=== PATIENT | female | born 1940 | race American Indian/Alaskan Native ===

== ENCOUNTER 2016-06-09 23:23 | Inpatient (IN) | payer MEDICARE ==
--- NOTE | 2016-06-10 00:09 | Emergency Department Report ---
ED General Adult HPI - General Chief complaint: Chest Pain Stated complaint: CHEST PAIN Time Seen by Provider: 06/09/16 23:48 Source: EMS Mode of arrival: Stretcher Limitations: Physical Limitation - History of Present Illness Initial comments: This is a 75-year-old female who gives me a myriad of complaints. Her chief complaint is chest pain that she feels on the right side radiating to the right aspect of her neck. She describes some mild dyspnea associated with this as well she also reports feeling nauseated with this. She complains of pain 8 out of 10. She denies any trauma today she denies any prior significant cardiac history. Onset/Timin -: Sudden, hour(s) Location: chest Radiation: neck Severity scale (0 -10): 9 Quality: aching Consistency: constant Improves with: none Worsens with: none Associated Symptoms: nausea/vomiting - Related Data Home Medications Medication Instructions Recorded Confirmed Last Taken Carvedilol [Coreg] 6.25 mg PO DAILY 10/14/13 06/10/16 09/30/15 Ibuprofen [Motrin] 600 mg PO Q8H PRN 06/03/15 06/10/16 Unknown Simvastatin [Zocor TAB] 10 mg PO QHS 06/03/15 06/10/16 06/02/15 Losartan/Hydrochlorothiazide 1 tab PO QDAY 06/04/15 06/10/16 09/30/15 [Hyzaar 100-25 TAB] ALPRAZolam [Xanax TAB] 1 mg PO QHS PRN 06/10/16 06/10/16 Unknown Pen Needle, Diabetic [Bd 1 each MC BID 06/10/16 06/10/16 Unknown Ultra-Fine Pen Needle] Previous Rx's Medication Instructions Recorded Last Taken Type Gabapentin [Neurontin] 300 mg PO QPM capsule 06/14/15 09/29/15 Rx Insulin Lispro Prot/Lispro 20 units SUB-Q BIDDIAB units 06/14/15 09/30/15 Rx [HumaLOG Mix 75/25 Vial] Allergies Allergy/AdvReac Type Severity Reaction Status Date / Time metronidazole [From Flagyl] Allergy Hives Verified 04/07/15 05:25 silver Allergy Hives Verified 04/07/15 05:25 ED Review of Systems ROS: Stated complaint: CHEST PAIN Other details as noted in HPI Constitutional: denies: chills, fever Eyes: denies: eye pain, eye discharge, vision change ENT: denies: ear pain, throat pain Respiratory: denies: cough, shortness of breath, wheezing Cardiovascular: chest pain. denies: palpitations Endocrine: no symptoms reported Gastrointestinal: nausea. denies: abdominal pain, diarrhea Genitourinary: denies: urgency, dysuria, discharge Musculoskeletal: denies: back pain, joint swelling, arthralgia Skin: denies: rash, lesions Neurological: denies: headache, weakness, paresthesias Psychiatric: denies: anxiety, depression Hematological/Lymphatic: denies: easy bleeding, easy bruising ED Past Medical Hx - Past Medical History Hx Hypertension: Yes Hx CVA: Yes Hx Heart Attack/AMI: No Hx Congestive Heart Failure: No Hx Diabetes: Yes Hx Deep Vein Thrombosis: No Hx Pulmonary Embolism: No Hx GERD: No Hx Liver Disease: No Hx Renal Disease: No Hx Sickle Cell Disease: No Hx Arthritis: No Hx Headaches / Migraines: No Hx Seizures: No Hx Kidney Stones: No Hx Psychiatric Treatment: No Hx Asthma: No Hx COPD: No Hx Tuberculosis: No Hx Dementia: No Hx HIV: No Additional medical history: diabetic retinopathy. diabetic neuropathy - Surgical History Hx Coronary Stent: No Hx Open Heart Surgery: No Hx Pacemaker: No Hx Internal Defibrillator: No Hx Cholecystectomy: No Hx Appendectomy: No Hx Breast Surgery: No Additional Surgical History: hysterectomy. Spinal fusion. esophageal tear., Knee surgery, eye surgery - Social History Smoking Status: Never Smoker Substance Use Type: None - Medications Home Medications: Home Medications Medication Instructions Recorded Confirmed Last Taken Type Carvedilol [Coreg] 6.25 mg PO DAILY 10/14/13 06/10/16 09/30/15 History Ibuprofen [Motrin] 600 mg PO Q8H PRN 06/03/15 06/10/16 Unknown History Simvastatin [Zocor TAB] 10 mg PO QHS 06/03/15 06/10/16 06/02/15 History Losartan/Hydrochlorothiazide 1 tab PO QDAY 06/04/15 06/10/16 09/30/15 History [Hyzaar 100-25 TAB] Gabapentin [Neurontin] 300 mg PO QPM capsule 06/14/15 06/10/16 09/29/15 Rx Insulin Lispro Prot/Lispro 20 units SUB-Q BIDDIAB units 06/14/15 06/10/1609/29 /16 Rx [HumaLOG Mix 75/25 Vial] ALPRAZolam [Xanax TAB] 1 mg PO QHS PRN 06/10/16 06/10/16 Unknown History Pen Needle, Diabetic [Bd 1 each MC BID 06/10/16 06/10/16 Unknown History Ultra-Fine Pen Needle] ED Physical Exam - General Limitations: Physical Limitation General appearance: alert, in no apparent distress - Head Head exam: Present: atraumatic, normocephalic - Eye Eye exam: Present: normal appearance - ENT ENT exam: Present: normal exam, mucous membranes moist - Neck Neck exam: Present: normal inspection, full ROM. Absent: tenderness, lymphadenopathy - Respiratory Respiratory exam: Present: normal lung sounds bilaterally. Absent: respiratory distress, rhonchi - Cardiovascular Cardiovascular Exam: Present: regular rate, normal rhythm. Absent: systolic murmur, diastolic murmur, rubs, gallop - GI/Abdominal GI/Abdominal exam: Present: soft, normal bowel sounds - Extremities Exam Extremities exam: Present: normal inspection - Back Exam Back exam: Present: normal inspection - Neurological Exam Neurological exam: Present: alert, oriented X3 - Psychiatric Psychiatric exam: Present: normal affect, normal mood - Skin Skin exam: Present: warm, dry, intact, normal color. Absent: rash ED Course Vital Signs 06/09/16 06/09/16 06/09/16 23:25 23:33 23:41 Temperature 98.6 F Pulse Rate 68 70 Respiratory 13 15 Rate Blood Pressure 192/102 192/102 Blood Pressure 192/102 [Right] O2 Sat by Pulse 99 99 99 Oximetry 06/09/16 06/09/16 06/10/16 23:51 23:59 00:00 Temperature Pulse Rate 70 70 68 Respiratory 15 15 13 Rate Blood Pressure 201/108 201/108 203/108 Blood Pressure [Right] O2 Sat by Pulse 99 100 100 Oximetry 06/10/16 06/10/16 06/10/16 00:10 00:21 00:22 Temperature Pulse Rate 71 69 Respiratory 9 L 13 16 Rate Blood Pressure 203/108 203/108 Blood Pressure [Right] O2 Sat by Pulse 96 99 100 Oximetry 06/10/16 06/10/16 06/10/16 00:30 00:41 00:42 Temperature Pulse Rate 66 66 70 Respiratory 12 10 L Rate Blood Pressure 193/96 193/96 201/108 Blood Pressure [Right] O2 Sat by Pulse 99 98 Oximetry 06/10/16 06/10/16 06/10/16 00:51 01:00 01:11 Temperature Pulse Rate 64 71 69 Respiratory 12 14 13 Rate Blood Pressure 192/92 172/96 172/96 Blood Pressure [Right] O2 Sat by Pulse 100 98 99 Oximetry 06/10/16 06/10/16 06/10/16 01:21 01:30 01:41 Temperature Pulse Rate 62 67 83 Respiratory 13 13 12 Rate Blood Pressure 184/97 175/91 175/91 Blood Pressure [Right] O2 Sat by Pulse 99 100 98 Oximetry 06/10/16 06/10/16 06/10/16 01:51 02:01 02:11 Temperature Pulse Rate 70 67 71 Respiratory 13 10 L 14 Rate Blood Pressure 175/91 186/110 186/110 Blood Pressure [Right] O2 Sat by Pulse 100 100 100 Oximetry 06/10/16 06/10/16 06/10/16 02:21 02:31 02:41 Temperature Pulse Rate 65 68 70 Respiratory 14 11 L 9 L Rate Blood Pressure 186/110 186/110 186/110 Blood Pressure [Right] O2 Sat by Pulse 100 98 98 Oximetry 06/10/16 06/10/16 06/10/16 02:51 03:01 03:11 Temperature Pulse Rate 65 65 59 L Respiratory 10 L 10 L 8 L Rate Blood Pressure 186/110 142/89 142/89 Blood Pressure [Right] O2 Sat by Pulse 96 98 97 Oximetry 06/10/16 06/10/16 06/10/16 03:21 03:30 03:41 Temperature Pulse Rate 62 62 62 Respiratory 10 L 9 L 9 L Rate Blood Pressure 142/89 127/80 127/80 Blood Pressure [Right] O2 Sat by Pulse 97 96 96 Oximetry 06/10/16 06/10/16 06/10/16 03:53 04:00 04:11 Temperature Pulse Rate 61 60 60 Respiratory 9 L 11 L 10 L Rate Blood Pressure 127/80 135/82 135/82 Blood Pressure [Right] O2 Sat by Pulse 95 98 99 Oximetry 06/10/16 06/10/16 06/10/16 04:21 04:30 04:41 Temperature Pulse Rate 59 L 63 62 Respiratory 11 L 10 L 9 L Rate Blood Pressure 135/82 142/76 142/76 Blood Pressure [Right] O2 Sat by Pulse 99 100 98 Oximetry 06/10/16 06/10/16 04:51 05:00 Temperature Pulse Rate 60 62 Respiratory 8 L 13 Rate Blood Pressure 142/76 136/66 Blood Pressure [Right] O2 Sat by Pulse 97 97 Oximetry - Reevaluation(s) Reevaluation #1: 06/10/16 05:29 Patient appears very calm and comfortable lying in the bed she will she response my questions with these. I ask her how significant her pain is and she describes it being a 10 out of 10. Her examination was unremarkable. Her pain description is not consistent with her presentation. ECG is not consistent with anything that appears like a STEMI. Labs as well demonstrate a normal troponin. Chest x-ray was essentially unremarkable as well. I did add LFTs due to the right shoulder/right arm pains. These were noted to be normal as well. On her abdominal examination is unremarkable. I do feel there is a psychiatric component to this evaluation. Unfortunately I do need to error on the side of caution given her symptomatology and will admit her for further chest pain rule out and observation. Her vital signs remained stable here. Did become quite comfortable initially with a little morphine. She slept for a couple of hours. Then when awaking she stated her pain came back just as suddenly and this is sharp. There is no change on the monitor with the morphology of her QRS complexes are ST-T waves her condition is stable at this time. ED Medical Decision Making - Lab Data Result diagrams: 06/10/16 00:18 06/10/16 00:18 - EKG Data -: EKG Interpreted by Me (nonspecific ST-T wave abnormalities including T-wave inversion inferiorly) EKG shows normal: sinus rhythm Rate: normal - Radiology Data Radiology results: image reviewed interpreted by me: No acute process without infiltrate normal cardiac silhouette no signs of widening of the mediastinum. Critical care attestation.: If time is entered above; I have spent that time in minutes in the direct care of this critically ill patient, excluding procedure time. ED Disposition Clinical Impression: Chest pain Disposition: OP ADMITTED IP TO THIS HOSP Is pt being admited?: Yes Does the pt Need Aspirin: No Condition: Stable Time of Disposition: 03:34
[2016-06-10] MEDS ORDERED: ASPIRIN PO ONE (00:31)
[2016-06-10] MEDS ORDERED: NITRO-BID 2% TP ONE (00:31)
[2016-06-10 00:44] LABS: Eosinophils % (Auto) 2.1 % (0.0-4.3)
[2016-06-10 00:57] LABS: BUN/Creatinine Ratio 18.18; Blood Urea Nitrogen 20 mg/dL (7-17); Calcium 10.4 mg/dL (8.4-10.2); Carbon Dioxide 26 mmol/L (22-30); Chloride 96.6 mmol/L (98-107); Glucose 169 mg/dL (65-100); Potassium 3.7 mmol/L (3.6-5.0); Sodium 136 mmol/L (137-145)
[2016-06-10 01:07] LABS: Anion Gap 17 mmol/L
[2016-06-10 01:39] LABS: Red Cell Distribution Width 13.5 % (13.2-15.2)
[2016-06-10 02:02] LABS: Basophils % (Auto) 1.7 % (0.0-1.8); Hematocrit 36.7 % (30.3-42.9); Hemoglobin 11.8 gm/dl (10.1-14.3); Mean Corpuscular HGB Conc 32 % (30-34); Mean Corpuscular Volume 80 fl (79-97); Platelet Count 124 K/mm3 (140-440); Red Blood Count 4.59 M/mm3 (3.65-5.03); White Blood Count 4.8 K/mm3 (4.5-11.0)
[2016-06-10] MEDS ORDERED: ZOFRAN IV ONE (02:13)
[2016-06-10] MEDS ORDERED: MORPHINE IV ONE (02:13)
[2016-06-10 03:15] LABS: Mean Corpuscular Hemoglobin 26 pg (28-32)
[2016-06-10 03:17] LABS: Diff Status Complete
[2016-06-10 04:34] LABS: Alanine Aminotransferase 44 units/L (7-56); Albumin 3.7 g/dL (3.9-5); Alkaline Phosphatase 73 units/L (35-129); Bilirubin,Total 0.4 mg/dL (0.1-1.2); Lipase 86 units/L (13-60); Total Protein 7.4 g/dL (6.3-8.2)
[2016-06-10 04:52] LABS: Bilirubin,Direct < 0.2 mg/dL (0-0.2); Bilirubin,Indirect 0.2 mg/dL
[2016-06-10] MEDS ORDERED: SODIUM CHLORIDE FLUSH SYRINGE 10 ML IV PRN (06:53)
--- NOTE | 2016-06-10 07:01 | History and Physical Report ---
History of Present Illness Date of examination: 06/10/16 Date of admission: 06/10/16 03:35 Chief complaint: Chest pain 1 day Non specific complaints -many History of present illness: This is a 75-year-old female who has many of complaints. Her chief complaint is chest pain that she feels on the right side radiating to the right aspect of her neck. She describes some mild dyspnea associated with this as well she also reports feeling nauseated with this. She complains of pain 8 out of 10. She denies any trauma today she denies any prior significant cardiac history. Past History Past Medical History: diabetes, hypertension, hyperlipidemia, other (PN Dementia psychosis) Past Surgical History: No surgical history Social history: lives with family Family history: hypertension Medications and Allergies Allergies Allergy/AdvReac Type Severity Reaction Status Date / Time metronidazole [From Flagyl] Allergy Hives Verified 04/07/15 05:25 silver Allergy Hives Verified 04/07/15 05:25 Home Medications Medication Instructions Recorded Confirmed Last Taken Type Carvedilol [Coreg] 6.25 mg PO DAILY 10/14/13 06/10/16 09/30/15 History Ibuprofen [Motrin] 600 mg PO Q8H PRN 06/03/15 06/10/16 Unknown History Simvastatin [Zocor TAB] 10 mg PO QHS 06/03/15 06/10/16 06/02/15 History Losartan/Hydrochlorothiazide 1 tab PO QDAY 06/04/15 06/10/16 09/30/15 History [Hyzaar 100-25 TAB] Gabapentin [Neurontin] 300 mg PO QPM capsule 06/14/15 06/10/16 09/29/15 Rx Insulin Lispro Prot/Lispro 20 units SUB-Q BIDDIAB units 06/14/15 06/10/1609/29 Rx [HumaLOG Mix 75/25 Vial] ALPRAZolam [Xanax TAB] 1 mg PO QHS PRN 06/10/16 06/10/16 Unknown History Pen Needle, Diabetic [Bd 1 each MC BID 06/10/16 06/10/16 Unknown History Ultra-Fine Pen Needle] Active Meds: Active Medications Alprazolam (Xanax) 1 mg PO QHS PRN PRN Reason: Anxiety Carvedilol (Coreg) 6.25 mg PO DAILY ROSEANN Gabapentin (Neurontin) 300 mg PO QPM ROSEANN Influenza Virus Vaccine Quadrival (Fluarix Quad [id number](36 Mos+)) 60 mcg IM .ONCE ONE Stop: 06/10/16 12:01 Insulin Aspart (Novolog) 0 units SUB-Q ACHS ROSEANN PRN Reason: Protocol Insulin Human Isoph/Insulin Regular (Novolin 70/30) 20 unit SUB-Q BIDDIAB ROSEANN Miscellaneous Medication (Losartan/Hydrochlorothiazide [Hyzaar 100-25 Tab]) 1 tab PO QDAY ROSEANN Simvastatin (Zocor) 10 mg PO QHS REPLACED BY [facility] Sodium Chloride (Sodium Chloride Flush Syringe 10 Ml) 10 ml IV PRN PRN PRN Reason: LINE FLUSH Review of Systems All systems: negative Cardiovascular: chest pain Respiratory: shortness of breath Exam - Constitutional Vitals: Temp Pulse Resp BP Pulse Ox 98.6 F 62 13 136/66 97 06/09/16 23:25 06/10/16 05:00 06/10/16 05:00 06/10/16 05:00 06/10/16 05:00 General appearance: Present: no acute distress, well-nourished - EENT Eyes: Present: PERRL ENT: hearing intact, clear oral mucosa - Neck Neck: Present: supple, normal ROM - Respiratory Respiratory effort: normal Respiratory: bilateral: CTA - Cardiovascular Heart Sounds: Present: S1 & S2. Absent: rub, click - Extremities Extremities: pulses symmetrical, No edema Peripheral Pulses: within normal limits - Abdominal General gastrointestinal: Present: soft, non-tender, non-distended, normal bowel sounds Female genitourinary: Present: normal - Integumentary Integumentary: Present: clear, warm, dry - Musculoskeletal Musculoskeletal: gait normal, strength equal bilaterally - Psychiatric Psychiatric: appropriate mood/affect, intact judgment & insight - Neurologic Neurologic: CNII-XII intact, moves all extremities Results - Labs CBC & Chem 7: 06/10/16 00:18 06/10/16 00:18 Labs: Short CBC 06/10/16 Range/Units 00:18 WBC 4.8 (4.5-11.0) K/mm3 Hgb 11.8 (10.1-14.3) gm/dl Hct 36.7 (30.3-42.9) % Plt Count 124 L (140-440) K/mm3 BMP 06/10/16 00:18 Sodium 136 L Potassium 3.7 Chloride 96.6 L Carbon Dioxide 26 BUN 20 H Creatinine 1.1 Glucose 169 H Calcium 10.4 H Cardiac Enzymes 06/10/16 06/10/16 Range/Units 00:18 03:11 Troponin T < 0.010 < 0.010 (0.00-0.029) ng/mL Liver Function 06/10/16 Range/Units 00:18 Total Bilirubin 0.4 (0.1-1.2) mg/dL Direct Bilirubin < 0.2 (0-0.2) mg/dL AST 47 H (5-40) units/L ALT 44 (7-56) units/L Alkaline Phosphatase 73 (35-129) units/L Albumin 3.7 L (3.9-5) g/dL Cardiac Enzymes 06/10/16 Range/Units 12:04 Total Creatine Kinase 77 (30-135) units/L CK-MB (CK-2) 2.6 (0.0-4.0) ng/mL Troponin T < 0.010 (0.00-0.029) ng/mL Assessment and Plan - Patient Problems (1) Chest pain Current Visit: Yes Status: Acute Qualifiers: Chest pain type: C Plan to address problem: Chest pain r/o mi protocol (2) BRITTA (acute kidney injury) Current Visit: No Status: Acute Plan to address problem: Iv fluids (3) History of psychosis Current Visit: No Status: Acute Plan to address problem: ]Has delusions-she is my office patient and know her for 10 years (4) Acute ischemic stroke Current Visit: No Status: Resolved (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 (6) HTN (hypertension) Current Visit: No Status: Chronic Qualifiers: Hypertension type: essential hypertension Qualified Code(s): I10 - Essential (primary) hypertension (7) Hyperlipidemia Current Visit: No Status: Chronic Qualifiers: Hyperlipidemia type: mixed hyperlipidemia Qualified Code(s): E78.2 - Mixed hyperlipidemia Plan to address problem: Cont statins (8) Type 2 diabetes mellitus Current Visit: No Status: Chronic Qualifiers: Diabetes mellitus complication status: without complication Diabetes mellitus complication detail: D Diabetic retinopathy severity: D Proliferative retinopathy type: P Diabetes mellitus macular edema: D Diabetes mellitus [employer] truck [employer] insulin use: D Laterality: L Chronic kidney disease stage: C Plan to address problem: Cont Insulin and coverage
[2016-06-10] MEDS ORDERED: INSULIN LISPRO PROT SUB-Q SCH (08:00)
[2016-06-10] MEDS: NOVOLOG SUB-Q SCH ×4 (08:00→22:45)
[2016-06-10] MEDS ORDERED: LISPRO SUB-Q SCH (08:00)
[2016-06-10] MEDS ORDERED: LEXISCAN IV ONE ×2 (08:20→08:58)
--- NOTE | 2016-06-10 09:16 | XRay Report ---
Chest: Compared to 11/12/15. History: Chest pain. Findings: Cardiomegaly. Trachea is midline. No consolidation, pneumothorax or pleural effusion. Impression: No acute cardiopulmonary findings.
--- NOTE | 2016-06-10 09:39 | Event Note ---
Date: 06/10/16 Nuclear stress test completed. No complications Nuclear images show no significant areas of ischemia Risk for cardiac event with in the next year is less than 1% EF 69%
[2016-06-10] MEDS ORDERED: NON-FORMULARY (Losartan/Hydrochlorothiazide [Hyzaar 100-25 Tab] 1 TAB) PO SCH (10:00)
[2016-06-10] MEDS: COREG PO SCH (10:45)
[2016-06-10] MEDS: HCTZ PO SCH (10:45)
[2016-06-10 11:57] LABS: Creatine Kinase 76 units/L (30-135); Creatine Kinase MB 2.8 ng/mL (0.0-4.0)
[2016-06-10] MEDS ORDERED: FLUARIX QUAD 2016-2017(36 MOS+) IM ONE (12:00)
[2016-06-10 12:34] LABS: Creatine Kinase MB 2.6 ng/mL (0.0-4.0)
[2016-06-10 12:35] LABS: Creatine Kinase 77 units/L (30-135)
[2016-06-10] MEDS: COZAAR PO SCH (14:42)
[2016-06-10] MEDS: NEURONTIN PO SCH (17:17)
[2016-06-10] MEDS: ZOCOR PO SCH (22:44)
[2016-06-11] MEDS: COREG PO SCH (10:34)
[2016-06-11] MEDS: HCTZ PO SCH (10:34)
[2016-06-11] MEDS: NOVOLOG SUB-Q SCH ×4 (10:36→22:57)
--- NOTE | 2016-06-11 10:59 | Admit Criteria Form ---
Admission Criteria Documentation: CHEST PAIN Clinical Indications for Admission to Inpatient Care (Place 'X' for any and all applicable criteria): Admission is indicated for chest pain and ANY ONE of the following(1)(2)(3)(4)(5 ): [ ]I. Angina with acute coronary syndrome (Also use Myocardial Infarction or Angina guideline) [ ]II. Hemodynamic instability [X]III. Angina needing acute intervention as indicated by ALL of the following( 11)(12): [X]a) Unstable angina is present as indicated by angina that is ANY ONE of the following: [ ]i) New onset [ ]ii) Nocturnal [X]iii) Prolonged at rest [ ]iv) Progressive [X]b) Angina warrants acute intervention as indicated by ANY ONE of the following: [ ]i) Recurrent angina (e.g, not responding as previously to treatment) [X]ii) Angina at rest or with low-level activities despite initial medical therapy [ ]iii) New or presumably new ST-segment depression on ECG [ ]iv) Signs or symptoms of heart failure (eg, dyspnea, pulmonary edema) [ ]v) New or worsening mitral regurgitation [ ]vi) Hemodynamic instability [ ]vii) Dangerous arrhythmia (eg, sustained ventricular tachycardia) [ ]viii) History of percutaneous coronary intervention within 6 months [ ]ix) History of coronary artery bypass graft surgery [ ]x) WILBERT risk score of 2 or greater[A] [X]xi) History of Diabetes(14) [ ]xii) High-risk cardiac ischemia findings on noninvasive testing (e.g, echocardiogram, treadmill testing, nuclear scan) [ ]xiii) Chronic renal insufficiency (ie, estimated GFR less than 60 mL/min/1.732m) [ ]xiv) Left ventricular ejection fraction less than 40% [ ]IV. Evidence of ID (eg, cardiac biomarkers positive, ST-segment elevation on ECG) also use Myocardial Infarction Criteria Form. [ ]V. Pulmonary edema [ ]. Respiratory distress [ ]VII. Chest pain indicative of serious diagnosis other than coronary artery disease (eg, aortic dissection) [ ]VIII. Contraindications and/or Inappropriate clinical situations for Observational Care in patients with Chest Pain, when ANY ONE of the following is required: [ ]a) Patient with risk factor for pulmonary embolism, acute coronary syndrome and myocardial infarction (18) [ ]b) Patient with Pulmonary embolism require an average LOS of 4.3 days, therefore emergency department observation management is inappropriate 18,23 [ ]c) Painful condition/s in the elderly, have the highest rate of recidivism after emergency department observation management (10.8%) 20,21,22 [ ]d) Elevated cardiac biomarker requires intensive and exhaustive care (19) [ ]IX. General contraindications and/or Inappropriate clinical situations for Observational Care in patients with Chest Pain, when ANY ONE of the following is required: [ ]a) Prediction of prolongation of LOS based on ANY ONE of the following may be considered as a contraindication for observational care 2, 3, 4, 5, 6, 7, 8, 9, 10, 11 [ ]i) Age > 65 yrs. [ ]ii) Patient arriving by ambulance [ ]iii) Patient with high acuity [ ]iv) Patient requiring vital sign monitoring [ ]v) Patient on IV medication [ ]b) Systolic blood pressures 180mmHg 3,12 [ ]c) Patient with altered mental status including delirium and other alteration of consciousness, (3) [ ]d) Patient whose discharge disposition will be to a intermediate home or rehabilitation home should not be managed in Emergency Department Observation Unit. CMS rule requires 3 days hospital stay before such placement. 3,13 [ ]e) Patient with failure to thrive due to broad array of etiologies 3,16,17 [ ]f) Inability to ambulate 3,14 Extended stay beyond goal length of stay may be needed for (1)(28): [ ]a) Specific condition diagnosed after evaluation (eg, pulmonary embolism, aortic dissection) [ ]b) Unstable angina [ ]c) Continued suspicion of acute coronary syndrome with inability to complete needed cardiac evaluation (eg, patient clinically unable to undergo stress testing) [ ]d) Myocardial infarction (Contents from ANGINA and CHEST PAIN clinical indications for admission to inpatient care have been integrated in this form) The original [employer] content created by [employer] has been revised. The portions of the content which have been revised are identified through the use of italic text or in bold, and [employer] has neither reviewed nor approved the modified material. All other unmodified content is copyright [employer]. Please see references footnoted in the original [employer] edition 2016 Admission Criteria Met: Yes
--- NOTE | 2016-06-11 13:40 | Treadmill Report ---
THALLIUM STRESS TEST LEFT VENTRICLE: Left ventricular chamber size is within normal. There is a small fixed apical defect, no significant reversibility on the resting study. Gated analysis demonstrates normal left ventricular systolic function, ejection fraction 69%. CONCLUSION: Small fixed apical defect, worse on the resting images, consistent with breast attenuation artifact. No reversible ischemia is demonstrated on this study. Clinical correlation is recommended. JOB# [id number] CA/NTS
[2016-06-11] MEDS: COZAAR PO SCH (13:51)
--- NOTE | 2016-06-11 15:58 | Progress Note ---
Assessment and Plan Assessment and plan: 1. Chest pain Acute coronary syndrome was excluded based on normal cardiac enzymes, EKG with no acute ischemic changes and stress test with no reversible ischemia Lipase elevated, so most likely she has epigastric pain secondary to pancreatitis; give IV fluids, keep nothing by mouth, and recheck lipase in a.m. 2. Pancreatitis See above 3. Acute kidney injury Likely secondary to vasomotor nephropathy She is on ISABEL inhibitor and HCTZ Give IV fluids, recheck in a.m.; if renal function same or worse, will discontinue diuretic 4. Hypertension BP controlled on Coreg, losartan and HCTZ 5. Diabetes On insulin 70/30; Accu-Cheks and SSI to assess insulin requirements and make adjustments Neurontin for neuropathy 6. Old CVA On statin; add Aspirin 7. Hyperlipidemia Continue statin 8. 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 DVT prophylaxis History Interval history: doing well, pain resolved Hospitalist Physical - Constitutional Vitals: Temp Pulse Resp BP Pulse Ox 98.8 F 79 18 112/57 96 06/11/16 10:28 06/11/16 13:54 06/11/16 10:28 06/11/16 13:54 06/11/16 10:28 General appearance: Present: no acute distress, well-nourished - EENT Eyes: Present: PERRL, EOM intact - Neck Neck: Present: supple, normal ROM. Absent: masses or JVD - Respiratory Respiratory effort: normal Respiratory: bilateral: CTA, negative: rales, rhonchi, wheezing - Cardiovascular Rhythm: regular Heart Sounds: Present: S1 & S2. Absent: systolic murmur - Extremities Extremities: no ischemia - Abdominal General gastrointestinal: soft, non-tender, non-distended, normal bowel sounds - Neurologic Neurologic: CNII-XII intact, no focal deficits Results - Labs CBC & Chem 7: 06/10/16 00:18 06/10/16 00:18 Labs: Laboratory Last Values WBC 4.8 K/mm3 (4.5-11.0) 06/10/16 00:18 RBC 4.59 M/mm3 (3.65-5.03) 06/10/16 00:18 Hgb 11.8 gm/dl (10.1-14.3) 06/10/16 00:18 Hct 36.7 % (30.3-42.9) 06/10/16 00:18 MCV 80 fl (79-97) 06/10/16 00:18 MCH 26 pg (28-32) L 06/10/16 00:18 MCHC 32 % (30-34) 06/10/16 00:18 RDW 13.5 % (13.2-15.2) 06/10/16 00:18 Plt Count 124 K/mm3 (140-440) L 06/10/16 00:18 Lymph % (Auto) 46.1 % (13.4-35.0) H 06/10/16 00:18 [place] % (Auto) 11.0 % (0.0-7.3) H 06/10/16 00:18 Eos % (Auto) 2.1 % (0.0-4.3) 06/10/16 00:18 Baso % (Auto) 1.7 % (0.0-1.8) 06/10/16 00:18 Lymph # 2.2 K/mm3 (1.2-5.4) 06/10/16 00:18 [place] # 0.6 K/mm3 (0.0-0.8) 06/10/16 00:18 Eos # 0.1 K/mm3 (0.0-0.4) 06/10/16 00:18 Baso # 0.1 K/mm3 (0.0-0.1) 06/10/16 00:18 Add Manual Diff Complete 06/10/16 00:18 Seg Neutrophils % 40.9 % (40.0-70.0) 06/10/16 00:18 Seg Neutrophils # 2.1 K/mm3 (1.8-7.7) 06/10/16 00:18 Sodium 136 mmol/L (137-145) L 06/10/16 00:18 Potassium 3.7 mmol/L (3.6-5.0) 06/10/16 00:18 Chloride 96.6 mmol/L (98-107) L 06/10/16 00:18 Carbon Dioxide 26 mmol/L (22-30) 06/10/16 00:18 Anion Gap 17 mmol/L 06/10/16 00:18 BUN 20 mg/dL (7-17) H 06/10/16 00:18 Creatinine 1.1 mg/dL (0.7-1.2) 06/10/16 00:18 Estimated GFR 59 ml/min 06/10/16 00:18 BUN/Creatinine Ratio 18.18 % 06/10/16 00:18 Glucose 169 mg/dL (65-100) H 06/10/16 00:18 POC Glucose 216 (70-105) H 06/11/16 10:26 Calcium 10.4 mg/dL (8.4-10.2) H 06/10/16 00:18 Total Bilirubin 0.4 mg/dL (0.1-1.2) 06/10/16 00:18 Direct Bilirubin < 0.2 mg/dL (0-0.2) 06/10/16 00:18 Indirect Bilirubin 0.2 mg/dL 06/10/16 00:18 AST 47 units/L (5-40) H 06/10/16 00:18 ALT 44 units/L (7-56) 06/10/16 00:18 Alkaline Phosphatase 73 units/L (35-129) 06/10/16 00:18 Total Creatine Kinase 77 units/L (30-135) 06/10/16 12:04 CK-MB (CK-2) 2.6 ng/mL (0.0-4.0) 06/10/16 12:04 CK-MB (CK-2) Rel Index 3.3 (0-4) 06/10/16 12:04 Troponin T < 0.010 ng/mL (0.00-0.029) 06/10/16 12:04 Total Protein 7.4 g/dL (6.3-8.2) 06/10/16 00:18 Albumin 3.7 g/dL (3.9-5) L 06/10/16 00:18 Albumin/Globulin Ratio 1.0 % 06/10/16 00:18 Lipase 86 units/L (13-60) H 06/10/16 00:18 - Imaging and Cardiology EKG: image reviewed (no acute ischemic changes) Chest x-ray: image reviewed (normal) Imaging and Cardiology: Stress test negative for iscj=hemia
[2016-06-11] MEDS: NACL 0.9% 1000 ML 1,000 ML IV SCH (16:34)
[2016-06-11] MEDS: NEURONTIN PO SCH (22:49)
[2016-06-11] MEDS: ZOCOR PO SCH (22:49)
[2016-06-12 06:54] LABS: BUN/Creatinine Ratio 22.72; Calcium 9.6 mg/dL (8.4-10.2); Chloride 99.9 mmol/L (98-107); Potassium 3.2 mmol/L (3.6-5.0)
[2016-06-12] MEDS: NOVOLOG SUB-Q SCH ×4 (08:42→21:18)
[2016-06-12] MEDS ORDERED: K-DUR PO ONE (09:23)
[2016-06-12] MEDS: BABY ASPIRIN PO SCH (11:38)
[2016-06-12] MEDS: COZAAR PO SCH (11:38)
[2016-06-12] MEDS: COREG PO SCH (11:38)
[2016-06-12] MEDS: HCTZ PO SCH (11:39)
--- NOTE | 2016-06-12 12:34 | Progress Note ---
Assessment and Plan Assessment and plan: 1. Chest pain Acute coronary syndrome was excluded based on normal cardiac enzymes, EKG with no acute ischemic changes and stress test with no reversible ischemia Lipase elevated, so most likely she has epigastric pain secondary to pancreatitis; received IV fluids; started on diet and tolerating well; lipase trended down 2. Pancreatitis See above 3. Acute kidney injury Likely secondary to vasomotor nephropathy She is on ISABEL inhibitor and HCTZ Receiving IV fluids;if renal function will worsen, will discontinue diuretic 4. Hypertension BP controlled on Coreg, losartan and HCTZ 5. Diabetes On insulin 70/30; Accu-Cheks and SSI to assess insulin requirements and make adjustments Neurontin for neuropathy 6. Old CVA On statin; add Aspirin 7. Hyperlipidemia Continue statin 8. 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 DVT prophylaxis 10. Discharge planning income tax manager working on placement History Interval history: doing well, epigastric pain resolved; c/o back pain Hospitalist Physical - Constitutional Vitals: Temp Pulse Resp BP Pulse Ox 98.3 F 66 18 122/76 100 06/12/16 09:56 06/12/16 09:56 06/12/16 09:56 06/12/16 09:56 06/12/16 09:56 General appearance: Present: no acute distress - EENT Eyes: Present: PERRL, EOM intact - Neck Neck: Present: supple, normal ROM. Absent: masses or JVD - Respiratory Respiratory effort: normal Respiratory: bilateral: CTA, negative: rales, rhonchi, wheezing - Cardiovascular Rhythm: regular Heart Sounds: Present: S1 & S2. Absent: systolic murmur - Extremities Extremities: no ischemia - Abdominal General gastrointestinal: soft, non-tender, non-distended, normal bowel sounds - Neurologic Neurologic: moves all extremities Results - Labs CBC & Chem 7: 06/10/16 00:18 06/12/16 06:03 Labs: Laboratory Last Values WBC 4.8 K/mm3 (4.5-11.0) 06/10/16 00:18 RBC 4.59 M/mm3 (3.65-5.03) 06/10/16 00:18 Hgb 11.8 gm/dl (10.1-14.3) 06/10/16 00:18 Hct 36.7 % (30.3-42.9) 06/10/16 00:18 MCV 80 fl (79-97) 06/10/16 00:18 MCH 26 pg (28-32) L 06/10/16 00:18 MCHC 32 % (30-34) 06/10/16 00:18 RDW 13.5 % (13.2-15.2) 06/10/16 00:18 Plt Count 124 K/mm3 (140-440) L 06/10/16 00:18 Lymph % (Auto) 46.1 % (13.4-35.0) H 06/10/16 00:18 [place] % (Auto) 11.0 % (0.0-7.3) H 06/10/16 00:18 Eos % (Auto) 2.1 % (0.0-4.3) 06/10/16 00:18 Baso % (Auto) 1.7 % (0.0-1.8) 06/10/16 00:18 Lymph # 2.2 K/mm3 (1.2-5.4) 06/10/16 00:18 [place] # 0.6 K/mm3 (0.0-0.8) 06/10/16 00:18 Eos # 0.1 K/mm3 (0.0-0.4) 06/10/16 00:18 Baso # 0.1 K/mm3 (0.0-0.1) 06/10/16 00:18 Add Manual Diff Complete 06/10/16 00:18 Seg Neutrophils % 40.9 % (40.0-70.0) 06/10/16 00:18 Seg Neutrophils # 2.1 K/mm3 (1.8-7.7) 06/10/16 00:18 Sodium 138 mmol/L (137-145) 06/12/16 06:03 Potassium 3.2 mmol/L (3.6-5.0) L 06/12/16 06:03 Chloride 99.9 mmol/L (98-107) 06/12/16 06:03 Carbon Dioxide 27 mmol/L (22-30) 06/12/16 06:03 Anion Gap 14 mmol/L 06/12/16 06:03 BUN 25 mg/dL (7-17) H 06/12/16 06:03 Creatinine 1.1 mg/dL (0.7-1.2) 06/12/16 06:03 Estimated GFR 59 ml/min 06/12/16 06:03 BUN/Creatinine Ratio 22.72 % 06/12/16 06:03 Glucose 92 mg/dL (65-100) 06/12/16 06:03 POC Glucose 169 (70-105) H 06/11/16 22:08 Calcium 9.6 mg/dL (8.4-10.2) 06/12/16 06:03 Total Bilirubin 0.4 mg/dL (0.1-1.2) 06/10/16 00:18 Direct Bilirubin < 0.2 mg/dL (0-0.2) 06/10/16 00:18 Indirect Bilirubin 0.2 mg/dL 06/10/16 00:18 AST 47 units/L (5-40) H 06/10/16 00:18 ALT 44 units/L (7-56) 06/10/16 00:18 Alkaline Phosphatase 73 units/L (35-129) 06/10/16 00:18 Total Creatine Kinase 77 units/L (30-135) 06/10/16 12:04 CK-MB (CK-2) 2.6 ng/mL (0.0-4.0) 06/10/16 12:04 CK-MB (CK-2) Rel Index 3.3 (0-4) 06/10/16 12:04 Troponin T < 0.010 ng/mL (0.00-0.029) 06/10/16 12:04 Total Protein 7.4 g/dL (6.3-8.2) 06/10/16 00:18 Albumin 3.7 g/dL (3.9-5) L 06/10/16 00:18 Albumin/Globulin Ratio 1.0 % 06/10/16 00:18 Lipase 66 units/L (13-60) H 06/12/16 06:03
[2016-06-12] MEDS: NACL 0.9% 1000 ML 1,000 ML IV SCH (18:37)
[2016-06-12] MEDS: NEURONTIN PO SCH (18:38)
[2016-06-12] MEDS: ZOCOR PO SCH (21:18)
[2016-06-12] MEDS: XANAX PO PRN (21:18)
[2016-06-13] MEDS: NOVOLOG SUB-Q SCH ×4 (10:06→21:24)
[2016-06-13] MEDS: COREG PO SCH (10:33)
[2016-06-13] MEDS: BABY ASPIRIN PO SCH (10:33)
[2016-06-13] MEDS: COZAAR PO SCH (10:33)
[2016-06-13] MEDS: HCTZ PO SCH (10:33)
--- NOTE | 2016-06-13 11:27 | Progress Note ---
Assessment and Plan - Patient Problems (1) BRITTA (acute kidney injury) Current Visit: No Status: Acute Plan to address problem: IVF replacement, monitor uop q shift, (2) History of psychosis Current Visit: No Status: Acute Plan to address problem: continue supportive care, outpatient f/u (3) HTN (hypertension) Current Visit: No Status: Chronic Qualifiers: Hypertension type: essential hypertension Qualified Code(s): I10 - Essential (primary) hypertension Plan to address problem: monitor bp q shift, continue current therapy (4) Hyperlipidemia Current Visit: No Status: Chronic Qualifiers: Hyperlipidemia type: mixed hyperlipidemia Qualified Code(s): E78.2 - Mixed hyperlipidemia Plan to address problem: continue current therapy (5) Type 2 diabetes mellitus Current Visit: No Status: Chronic Qualifiers: Diabetes mellitus complication status: without complication Diabetes mellitus complication detail: D Diabetic retinopathy severity: D Proliferative retinopathy type: P Diabetes mellitus macular edema: D Diabetes mellitus termite helper insulin use: D Laterality: L Chronic kidney disease stage: C Plan to address problem: ADA diet, insulin, accu check (6) DVT prophylaxis Current Visit: Yes Status: Acute History Interval history: Pt resting in bed, No reported nursing events. Pt medically optimized. Pt discharged. Case management consulted for placement. Hospitalist Physical - Constitutional Vitals: Temp Pulse Resp BP Pulse Ox 97.8 F 54 L 18 179/93 96 06/13/16 09:17 06/13/16 09:17 06/13/16 09:17 06/13/16 09:17 06/13/16 10:41 General appearance: Present: no acute distress - EENT Eyes: Present: PERRL ENT: hearing intact - Neck Neck: Present: supple - Respiratory Respiratory: bilateral: diminished - Cardiovascular Rhythm: regular Heart Sounds: Present: S1 & S2 - Extremities Extremities: no ischemia Peripheral Pulses: within normal limits - Abdominal General gastrointestinal: soft, non-tender, non-distended - Integumentary Integumentary: Present: clear, dry Results - Labs CBC & Chem 7: 06/10/16 00:18 06/12/16 06:03 Labs: Laboratory Last Values WBC 4.8 K/mm3 (4.5-11.0) 06/10/16 00:18 RBC 4.59 M/mm3 (3.65-5.03) 06/10/16 00:18 Hgb 11.8 gm/dl (10.1-14.3) 06/10/16 00:18 Hct 36.7 % (30.3-42.9) 06/10/16 00:18 MCV 80 fl (79-97) 06/10/16 00:18 MCH 26 pg (28-32) L 06/10/16 00:18 MCHC 32 % (30-34) 06/10/16 00:18 RDW 13.5 % (13.2-15.2) 06/10/16 00:18 Plt Count 124 K/mm3 (140-440) L 06/10/16 00:18 Lymph % (Auto) 46.1 % (13.4-35.0) H 06/10/16 00:18 [place] % (Auto) 11.0 % (0.0-7.3) H 06/10/16 00:18 Eos % (Auto) 2.1 % (0.0-4.3) 06/10/16 00:18 Baso % (Auto) 1.7 % (0.0-1.8) 06/10/16 00:18 Lymph # 2.2 K/mm3 (1.2-5.4) 06/10/16 00:18 [place] # 0.6 K/mm3 (0.0-0.8) 06/10/16 00:18 Eos # 0.1 K/mm3 (0.0-0.4) 06/10/16 00:18 Baso # 0.1 K/mm3 (0.0-0.1) 06/10/16 00:18 Add Manual Diff Complete 06/10/16 00:18 Seg Neutrophils % 40.9 % (40.0-70.0) 06/10/16 00:18 Seg Neutrophils # 2.1 K/mm3 (1.8-7.7) 06/10/16 00:18 Sodium 138 mmol/L (137-145) 06/12/16 06:03 Potassium 3.2 mmol/L (3.6-5.0) L 06/12/16 06:03 Chloride 99.9 mmol/L (98-107) 06/12/16 06:03 Carbon Dioxide 27 mmol/L (22-30) 06/12/16 06:03 Anion Gap 14 mmol/L 06/12/16 06:03 BUN 25 mg/dL (7-17) H 06/12/16 06:03 Creatinine 1.1 mg/dL (0.7-1.2) 06/12/16 06:03 Estimated GFR 59 ml/min 06/12/16 06:03 BUN/Creatinine Ratio 22.72 % 06/12/16 06:03 Glucose 92 mg/dL (65-100) 06/12/16 06:03 POC Glucose 74 (70-105) 06/12/16 21:07 Calcium 9.6 mg/dL (8.4-10.2) 06/12/16 06:03 Total Bilirubin 0.4 mg/dL (0.1-1.2) 06/10/16 00:18 Direct Bilirubin < 0.2 mg/dL (0-0.2) 06/10/16 00:18 Indirect Bilirubin 0.2 mg/dL 06/10/16 00:18 AST 47 units/L (5-40) H 06/10/16 00:18 ALT 44 units/L (7-56) 06/10/16 00:18 Alkaline Phosphatase 73 units/L (35-129) 06/10/16 00:18 Total Creatine Kinase 77 units/L (30-135) 06/10/16 12:04 CK-MB (CK-2) 2.6 ng/mL (0.0-4.0) 06/10/16 12:04 CK-MB (CK-2) Rel Index 3.3 (0-4) 06/10/16 12:04 Troponin T < 0.010 ng/mL (0.00-0.029) 06/10/16 12:04 Total Protein 7.4 g/dL (6.3-8.2) 06/10/16 00:18 Albumin 3.7 g/dL (3.9-5) L 06/10/16 00:18 Albumin/Globulin Ratio 1.0 % 06/10/16 00:18 Lipase 66 units/L (13-60) H 06/12/16 06:03
--- NOTE | 2016-06-13 17:00 | Discharge Summary ---
Providers - Providers Date of Admission: 06/10/16 03:35 Attending physician: ADELE MORROW 06/10/16 Consult to Cardiac Rehabilitation [CONS] Routine Reason For Exam: Phase I 06/13/16 15:22 Physical Therapy Evaluation and Treat [CONS] Routine Comment: Reason For Exam: skill level for SNF Primary care physician: INTERCHANGE AGENT Hospitalization Condition: Stable Hospital course: 75 YO Female admitted for Atypical chest pain, Pancreatitis, Debility, HTN, and Uncontrolled Diabetes and Acute Renal Falure. Pt treated with supportive care. Pt treated IAW Chest pain protocol. Serial cardiac enzymes, EKG, and telemetry were not indicative of acute ischemia. Pt uderwent stress test which was negative for ischemia. Pt status remained stable during hospital course but patient did not improve overall. Pt found to be unable to conduct ADL's and case management consulted at admission for D/C planning and placement. Pt medically optimized. Pt evaluated prior to discharge but no significant new physical exam findings since admission. Pt discharged to SNF under care of director medical safety. 35 minutes dedicated to patient discharge. Pt medications reconciled prior to discharge. Disposition: DC/TX SNF W [facility] C[facility] - Discharge Diagnoses (1) BRITTA (acute kidney injury) Status: Acute (2) History of psychosis Status: Acute (3) HTN (hypertension) Status: Chronic Qualifiers: Hypertension type: essential hypertension Qualified Code(s): I10 - Essential (primary) hypertension (4) Hyperlipidemia Status: Chronic Qualifiers: Hyperlipidemia type: mixed hyperlipidemia Qualified Code(s): E78.2 - Mixed hyperlipidemia (5) Type 2 diabetes mellitus Status: Chronic Qualifiers: Diabetes mellitus complication status: without complication Diabetes mellitus complication detail: D Diabetic retinopathy severity: D Proliferative retinopathy type: P Diabetes mellitus macular edema: D Diabetes mellitus halfway insulin use: D Laterality: L Chronic kidney disease stage: C (6) DVT prophylaxis Status: Acute Core Measure Documentation - Palliative Care Palliative Care/ Comfort Measures: Not Applicable - Core Measures Any of the following diagnoses?: none Exam - Constitutional Vitals: Temp Pulse Resp BP Pulse Ox 97.8 F 57 L 18 179/93 96 06/13/16 09:17 06/13/16 15:34 06/13/16 09:17 06/13/16 09:17 06/13/16 10:41 General appearance: Present: no acute distress - EENT Eyes: Present: PERRL ENT: hearing intact - Neck Neck: Present: supple - Respiratory Respiratory: bilateral: diminished - Cardiovascular Rhythm: regular Heart Sounds: Present: S1 & S2 - Extremities Extremities: no ischemia Peripheral Pulses: within normal limits - Abdominal General gastrointestinal: Present: soft, non-tender, non-distended - Integumentary Integumentary: Present: clear, dry, decreased turgor - Musculoskeletal Musculoskeletal: generalized weakness - Psychiatric Psychiatric: cooperative - Neurologic Neurologic: no gait normal Plan Activity: advance as tolerated Follow up with: PRIMARY CARE, [Primary Care Provider] - 3-5 Days
--- NOTE | 2016-06-13 17:39 | Discharge Summary ---
Providers - Providers Date of Admission: 06/10/16 03:35 Attending physician: ADELE MORROW 06/10/16 Consult to Cardiac Rehabilitation [CONS] Routine Reason For Exam: Phase I 06/13/16 15:22 Physical Therapy Evaluation and Treat [CONS] Routine Comment: Reason For Exam: skill level for SNF Primary care physician: BERNICE COMER MD Hospitalization Condition: Stable Disposition: DC/TX SNF W [facility] - Discharge Diagnoses (1) BRITTA (acute kidney injury) Status: Acute (2) History of psychosis Status: Acute (3) HTN (hypertension) Status: Chronic Qualifiers: Hypertension type: essential hypertension Qualified Code(s): I10 - Essential (primary) hypertension (4) Hyperlipidemia Status: Chronic Qualifiers: Hyperlipidemia type: mixed hyperlipidemia Qualified Code(s): E78.2 - Mixed hyperlipidemia (5) Type 2 diabetes mellitus Status: Chronic Qualifiers: Diabetes mellitus complication status: without complication Diabetes mellitus complication detail: D Diabetic retinopathy severity: D Proliferative retinopathy type: P Diabetes mellitus macular edema: D Diabetes mellitus senior care insulin use: D Laterality: L Chronic kidney disease stage: C (6) DVT prophylaxis Status: Acute Core Measure Documentation - Palliative Care Palliative Care/ Comfort Measures: Not Applicable Exam - Constitutional Vitals: Temp Pulse Resp BP Pulse Ox 97.8 F 57 L 18 179/93 96 06/13/16 09:17 06/13/16 15:34 06/13/16 09:17 06/13/16 09:17 06/13/16 10:41 Plan Follow up with: BERNICE COMER MD [Primary Care Provider] - 3-5 Days
[2016-06-13] MEDS: NEURONTIN PO SCH (18:26)
[2016-06-13] MEDS: ZOCOR PO SCH (21:22)
[2016-06-13] MEDS: XANAX PO PRN (21:22)
[2016-06-14] MEDS: COREG PO SCH (09:39)
[2016-06-14] MEDS: BABY ASPIRIN PO SCH (09:39)
[2016-06-14] MEDS: COZAAR PO SCH (09:39)
[2016-06-14] MEDS: NOVOLOG SUB-Q SCH ×2 (09:40→12:46)
[2016-06-14] MEDS: HCTZ PO SCH (12:41)
[2016-06-14 13:28] VITALS: BP 125/84
== END 2016-06-14 15:00 | DRG 682 ==
LOC: ED 23:23 → 4A 06-10 03:35
PROVIDERS: ADMIT Internal Medicine; ATTEND Internal Medicine
DX: N17.9 Acute kidney failure, unspecified (principal); K85.90 Acute pancreatitis without necrosis or infection, unspecified; I10 Essential (primary) hypertension; R07.89 Other chest pain; E78.2 Mixed hyperlipidemia; F03.90 Unspecified dementia, unspecified severity, without behavioral disturbance, psychotic disturbance, mood disturbance, and anxiety; E11.319 Type 2 diabetes mellitus with unspecified diabetic retinopathy without macular edema; E11.65 Type 2 diabetes mellitus with hyperglycemia; F22 Delusional disorders; E11.40 Type 2 diabetes mellitus with diabetic neuropathy, unspecified; Z88.8 Allergy status to other drugs, medicaments and biological substances; Z79.4 Long term (current) use of insulin; Z79.899 Other long term (current) drug therapy; Z86.73 Personal history of transient ischemic attack (TIA), and cerebral infarction without residual deficits; Z90.710 Acquired absence of both cervix and uterus; Z82.49 Family history of ischemic heart disease and other diseases of the circulatory system
CPT/HCPCS: 36415; 71010; 78452; 80048; 80074; 82550; 82553; 82962; 83690; 84484; 85025; 90686; 93005; 93010; 93017; 96374; 96375; A9502; J1815; J2270; J2405; J2785; J7030

== ENCOUNTER 2016-07-18 11:53 | Emergency (ER) | payer MEDICARE ==
[2016-07-18 12:49] LABS: Basophils % (Auto) 1.2 % (0.0-1.8); Eosinophils % (Auto) 2.8 % (0.0-4.3); Hematocrit 35.7 % (30.3-42.9); Hemoglobin 11.3 gm/dl (10.1-14.3); Mean Corpuscular HGB Conc 32 % (30-34); Mean Corpuscular Hemoglobin 26 pg (28-32); Mean Corpuscular Volume 82 fl (79-97); Platelet Count 173 K/mm3 (140-440); Red Blood Count 4.34 M/mm3 (3.65-5.03); Red Cell Distribution Width 13.7 % (13.2-15.2); White Blood Count 5.4 K/mm3 (4.5-11.0)
[2016-07-18 13:16] LABS: Anion Gap 14 mmol/L; Blood Urea Nitrogen 22 mg/dL (7-17); Calcium 10.1 mg/dL (8.4-10.2); Carbon Dioxide 28 mmol/L (22-30); Glucose 147 mg/dL (65-100); Potassium 3.5 mmol/L (3.6-5.0); Sodium 141 mmol/L (137-145)
--- NOTE | 2016-07-18 14:01 | Admit Criteria Form ---
<SHERINE ABDUL - Last Filed: 07/18/16 14:01> Admission Criteria Documentation: CHEST PAIN Clinical Indications for Admission to Inpatient Care (Place 'X' for any and all applicable criteria): Admission is indicated for chest pain and ANY ONE of the following(1)(2)(3)(4)(5 ): [ ]I. Angina with acute coronary syndrome (Also use Myocardial Infarction or Angina guideline) [ ]II. Hemodynamic instability [ ]III. Angina needing acute intervention as indicated by ALL of the following( 11)(12): [ ]a) Unstable angina is present as indicated by angina that is ANY ONE of the following: [ ]i) New onset [ ]ii) Nocturnal [ ]iii) Prolonged at rest [ ]iv) Progressive [ ]b) Angina warrants acute intervention as indicated by ANY ONE of the following: [ ]i) Recurrent angina (e.g, not responding as previously to treatment) [ ]ii) Angina at rest or with low-level activities despite initial medical therapy [ ]iii) New or presumably new ST-segment depression on ECG [ ]iv) Signs or symptoms of heart failure (eg, dyspnea, pulmonary edema) [ ]v) New or worsening mitral regurgitation [ ]vi) Hemodynamic instability [ ]vii) Dangerous arrhythmia (eg, sustained ventricular tachycardia) [ ]viii) History of percutaneous coronary intervention within 6 months [ ]ix) History of coronary artery bypass graft surgery [ ]x) WILBERT risk score of 2 or greater[A] [ ]xi) History of Diabetes(14) [ ]xii) High-risk cardiac ischemia findings on noninvasive testing (e.g, echocardiogram, treadmill testing, nuclear scan) [ ]xiii) Chronic renal insufficiency (ie, estimated GFR less than 60 mL/min/1.732m) [ ]xiv) Left ventricular ejection fraction less than 40% [ ]IV. Evidence of KS (eg, cardiac biomarkers positive, ST-segment elevation on ECG) also use Myocardial Infarction Criteria Form. [ ]V. Pulmonary edema [ ]. Respiratory distress [ ]VII. Chest pain indicative of serious diagnosis other than coronary artery disease (eg, aortic dissection) [ ]VIII. Contraindications and/or Inappropriate clinical situations for Observational Care in patients with Chest Pain, when ANY ONE of the following is required: [ ]a) Patient with risk factor for pulmonary embolism, acute coronary syndrome and myocardial infarction (18) [ ]b) Patient with Pulmonary embolism require an average LOS of 4.3 days, therefore emergency department observation management is inappropriate 18,23 [ ]c) Painful condition/s in the elderly, have the highest rate of recidivism after emergency department observation management (10.8%) 20,21,22 [ ]d) Elevated cardiac biomarker requires intensive and exhaustive care (19) [X ]IX. General contraindications and/or Inappropriate clinical situations for Observational Care in patients with Chest Pain, when ANY ONE of the following is required: [ X]a) Prediction of prolongation of LOS based on ANY ONE of the following may be considered as a contraindication for observational care 2, 3, 4, 5, 6, 7, 8, 9, 10, 11 [ X]i) Age > 65 yrs. [X ]ii) Patient arriving by ambulance [ ]iii) Patient with high acuity [ ]iv) Patient requiring vital sign monitoring [ ]v) Patient on IV medication [ ]b) Systolic blood pressures 180mmHg 3,12 [ ]c) Patient with altered mental status including delirium and other alteration of consciousness, (3) [ ]d) Patient whose discharge disposition will be to a senior care home or rehabilitation home should not be managed in Emergency Department Observation Unit. CMS rule requires 3 days hospital stay before such placement. 3,13 [ ]e) Patient with failure to thrive due to broad array of etiologies 3,16,17 [ ]f) Inability to ambulate 3,14 Extended stay beyond goal length of stay may be needed for (1)(28): [ ]a) Specific condition diagnosed after evaluation (eg, pulmonary embolism, aortic dissection) [ ]b) Unstable angina [ ]c) Continued suspicion of acute coronary syndrome with inability to complete needed cardiac evaluation (eg, patient clinically unable to undergo stress testing) [ ]d) Myocardial infarction (Contents from ANGINA and CHEST PAIN clinical indications for admission to inpatient care have been integrated in this form) The original [employer] content created by [employer] has been revised. The portions of the content which have been revised are identified through the use of italic text or in bold, and [facility] has neither reviewed nor approved the modified material. All other unmodified content is copyright [facility]. Please see references footnoted in the original [facility] edition 2016 <ZULEIKA FALK - Last Filed: 07/18/16 17:32> Admission Criteria Met: No
--- NOTE | 2016-07-18 16:13 | Consultation ---
History of Present Illness Consult date: 07/18/16 Requesting physician: ZULEIKA FALK Consult reason: chest pain History of present illness: The patient is a 75 year old female who is followed by Dr. Sheldon in the office with a history of hypertension, diabetes, hyperlipidemia, CVA, dementia who presented from her long-term with complaints of left sided chest pain with radiation to her back and left arm weakness that started this morning. She states the pain comes when she has the urge to urinate and resolves after she urinates. She also reports that the pain is worse with movement of her left arm. No shortness of breath, palpitations, nausea, vomiting or diaphoresis. No acute EKG changes. First troponin 0.014. Stress test done 06/2016 showed no reversible ischemia. Past History Past Medical History: diabetes, hypertension, hyperlipidemia, PVD, other ( legally blind) Past Surgical History: hysterectomy, total knee replacement, Other (eye surgery) Social history: full code, other (long-term resident). denies: smoking, alcohol abuse, prescription drug abuse, IV drug use Family history: no significant family history Medications and Allergies Allergies Allergy/AdvReac Type Severity Reaction Status Date / Time metronidazole [From Flagyl] Allergy Hives Verified 04/07/15 05:25 silver Allergy Hives Verified 04/07/15 05:25 Home Medications Medication Instructions Recorded Confirmed Last Taken Type Ibuprofen [Motrin 600 MG tab] 600 mg PO Q8H PRN 06/03/15 07/18/16 Unknown History Pen Needle, Diabetic [Bd 1 each MC BID 06/10/16 07/18/16 Unknown History Ultra-Fine Pen Needle] Aspirin [Aspirin BABY CHEW TAB] 81 mg PO QDAY #30 tab.chew 07/10/16 07/18/16 Unknown Rx Gabapentin [Neurontin] 300 mg PO QPM #30 capsule 07/10/16 07/18/16 Unknown Rx Insulin NPH/Regular [NovoLIN 70/30] 20 unit SUB-Q BIDDIAB #1 units 07/10/16 Unknown Rx Losartan [Cozaar] 100 mg PO QDAY #60 tablet 07/10/16 07/18/16 Unknown Rx Simvastatin [Zocor TAB] 10 mg PO QHS #30 tablet 07/10/16 07/18/16 Unknown Rx Review of Systems Constitutional: no fever, no chills Ears, nose, mouth and throat: no nasal congestion, no nasal discharge, no sinus pressure Cardiovascular: chest pain, no palpitations, no shortness of breath, no dyspnea on exertion, no leg edema Respiratory: no cough, no shortness of breath, no dyspnea on exertion, no congestion, no wheezing Gastrointestinal: no abdominal pain, no nausea, no vomiting, no diarrhea, no constipation Genitourinary Female: dysuria, no urgency, no hematuria Musculoskeletal: no neck stiffness, no neck pain Integumentary: no rash, no pruritis Neurological: weakness (left arm), no seizures, no syncope, no headaches Endocrine: no cold intolerance, no heat intolerance Hematologic/Lymphatic: no easy bruising, no easy bleeding Allergic/Immunologic: no urticaria, no wheezing Physical Examination Vital Signs Temp Pulse Resp BP Pulse Ox 98.1 F 77 16 181/96 99 07/18/16 12:17 07/18/16 12:17 07/18/16 12:17 07/18/16 12:07/18/16 12:17 General appearance: no acute distress HEENT: Positive: Normocephaly, Mucus Membranes Moist Neck: Positive: neck supple, trachea midline Cardiac: Positive: Reg Rate and Rhythm, S1/S2 Lungs: Positive: clear to auscultation Neuro: Positive: Grossly Intact Abdomen: Positive: Soft, Active Bowel Sounds. Negative: Tender Skin: Positive: Clear. Negative: Rash Extremities: Present: normal. Absent: edema Results 07/18/16 12:30 07/18/16 12:30 CBC 07/18/16 Range/Units 12:30 WBC 5.4 (4.5-11.0) K/mm3 RBC 4.34 (3.65-5.03) M/mm3 Hgb 11.3 (10.1-14.3) gm/dl Hct 35.7 (30.3-42.9) % Plt Count 173 (140-440) K/mm3 Lymph # 2.2 (1.2-5.4) K/mm3 [place] # 0.6 (0.0-0.8) K/mm3 Eos # 0.2 (0.0-0.4) K/mm3 Baso # 0.1 (0.0-0.1) K/mm3 Comprehensive Metabolic Panel 07/18/16 Range/Units 12:30 Sodium 141 (137-145) mmol/L Potassium 3.5 L (3.6-5.0) mmol/L Chloride 103.0 (98-107) mmol/L Carbon Dioxide 28 (22-30) mmol/L BUN 22 H (7-17) mg/dL Creatinine 1.0 (0.7-1.2) mg/dL Glucose 147 H (65-100) mg/dL Calcium 10.1 (8.4-10.2) mg/dL - Imaging and Cardiology Echo: report reviewed (05/2015: EF 50-55%, diastolic dysfunction, mild AR, mild MR, mild TR) EKG: image reviewed EKG interpretations - Telemetry EKG Rhythm: Sinus Rhythm - EKG Sinus rhythms and dysrhythmias: sinus rhythm Repolarization changes or abnormalities: ST or T wave suggestive of ischemia Assessment and Plan Atypical chest pain no acute EKG changes first troponin negative, will trend stress MPI 06/2016: no ischemia Hypertension Diabetes Hyperlipidemia Hx. of CVA Dementia Given atypical chest pain and recent negative stress test, recommend continuing medical management if second troponin is negative. Follow up appointment with Dr. Sheldon in the [place] office on 07/27/16 at 11:00 am. The patient has been seen in conjunction with Dr. Hansen who agrees with the assessment and plan of care. Thank you Dr. Falk for allowing us to participate in the care of this patient.
--- NOTE | 2016-07-18 17:35 | Emergency Department Report ---
ED Chest Pain HPI - General Chief Complaint: Chest Pain Stated Complaint: CHEST PAIN Time Seen by Provider: 07/18/16 12:40 Source: patient, EMS Mode of arrival: Stretcher Limitations: No Limitations - History of Present Illness MD Complaint: chest pain -: Gradual Pain Location: left chest Pain Radiation: LUE Severity: mild Severity scale (0 -10): 0 Quality: aching Consistency: intermittent (when urinating) Improves With: nothing - Related Data Home Medications Medication Instructions Recorded Confirmed Last Taken Ibuprofen [Motrin 600 MG tab] 600 mg PO Q8H PRN 06/03/15 07/18/16 Unknown Pen Needle, Diabetic [Bd 1 each MC BID 06/10/16 07/18/16 Unknown Ultra-Fine Pen Needle] Previous Rx's Medication Instructions Recorded Last Taken Type Aspirin [Aspirin BABY CHEW TAB] 81 mg PO QDAY #30 tab.chew 07/10/16 Unknown Rx Gabapentin [Neurontin] 300 mg PO QPM #30 capsule 07/10/16 Unknown Rx Insulin NPH/Regular [NovoLIN 70/30] 20 unit SUB-Q BIDDIAB #1 units 07/10/16 Unknown Rx Losartan [Cozaar] 100 mg PO QDAY #60 tablet 07/10/16 Unknown Rx Simvastatin [Zocor TAB] 10 mg PO QHS #30 tablet 07/10/16 Unknown Rx Allergies Allergy/AdvReac Type Severity Reaction Status Date / Time metronidazole [From Flagyl] Allergy Hives Verified 04/07/15 05:25 silver Allergy Hives Verified 04/07/15 05:25 WILBERT score - Wilbert Score Age > 65: (1) Yes Aspirin use within the Past 7 Days: (1) Yes 3 or more CAD Risk Factors: (1) Yes 2 or more Angina events in past 24 hrs: (0) No Known CAD with more than 50% Stenosis: (0) No Elevated Cardiac Markers: (0) No ST Deviation Greater than 0.5mm: (0) No WILBERT Score: 3 ED Review of Systems ROS: Stated complaint: CHEST PAIN Other details as noted in HPI Constitutional: denies: chills, fever Eyes: denies: eye pain, eye discharge, vision change ENT: denies: ear pain, throat pain Respiratory: denies: cough, shortness of breath, wheezing Cardiovascular: denies: chest pain, palpitations Endocrine: no symptoms reported Gastrointestinal: denies: abdominal pain, nausea, diarrhea Genitourinary: denies: urgency, dysuria, discharge Musculoskeletal: denies: back pain, joint swelling, arthralgia Skin: denies: rash, lesions Neurological: denies: headache, weakness, paresthesias Psychiatric: denies: anxiety, depression Hematological/Lymphatic: denies: easy bleeding, easy bruising ED Past Medical Hx - Past Medical History Previous Medical History?: Yes Hx Hypertension: Yes Hx CVA: Yes Hx Heart Attack/AMI: No Hx Congestive Heart Failure: No Hx Diabetes: Yes Hx Deep Vein Thrombosis: No Hx Pulmonary Embolism: No Hx GERD: No Hx Liver Disease: No Hx Renal Disease: No Hx Sickle Cell Disease: No Hx Arthritis: No Hx Headaches / Migraines: No Hx Seizures: No Hx Kidney Stones: No Hx Psychiatric Treatment: Yes (dementia with psychoses) Hx Asthma: No Hx COPD: No Hx Tuberculosis: No Hx Dementia: Yes Hx HIV: No Additional medical history: diabetic retinopathy. diabetic neuropathy - Surgical History Past Surgical History?: Yes Hx Coronary Stent: No Hx Open Heart Surgery: No Hx Pacemaker: No Hx Internal Defibrillator: No Hx Cholecystectomy: No Hx Appendectomy: No Hx Breast Surgery: No Additional Surgical History: hysterectomy. Spinal fusion. esophageal tear., Knee surgery, eye surgery - Social History Smoking Status: Never Smoker Substance Use Type: None - Medications Home Medications: Home Medications Medication Instructions Recorded Confirmed Last Taken Type Ibuprofen [Motrin 600 MG tab] 600 mg PO Q8H PRN 06/03/15 07/18/16 Unknown History Pen Needle, Diabetic [Bd 1 each MC BID 06/10/16 07/18/16 Unknown History Ultra-Fine Pen Needle] Aspirin [Aspirin BABY CHEW TAB] 81 mg PO QDAY #30 tab.chew 07/10/16 07/18/16 Unknown Rx Gabapentin [Neurontin] 300 mg PO QPM #30 capsule 07/10/16 07/18/16 Unknown Rx Insulin NPH/Regular [NovoLIN 70/30] 20 unit SUB-Q BIDDIAB #1 units 07/10/16 Unknown Rx Losartan [Cozaar] 100 mg PO QDAY #60 tablet 07/10/16 07/18/16 Unknown Rx Simvastatin [Zocor TAB] 10 mg PO QHS #30 tablet 07/10/16 07/18/16 Unknown Rx ED Physical Exam - General Limitations: No Limitations General appearance: alert, in no apparent distress - Head Head exam: Present: atraumatic, normocephalic - Eye Eye exam: Present: normal appearance - ENT ENT exam: Present: mucous membranes moist - Neck Neck exam: Present: normal inspection - Respiratory Respiratory exam: Present: normal lung sounds bilaterally. Absent: respiratory distress - Cardiovascular Cardiovascular Exam: Present: regular rate, normal rhythm. Absent: systolic murmur, diastolic murmur, rubs, gallop - GI/Abdominal GI/Abdominal exam: Present: soft, normal bowel sounds - Extremities Exam Extremities exam: Present: normal inspection - Back Exam Back exam: Present: normal inspection - Neurological Exam Neurological exam: Present: alert, oriented X3 - Psychiatric Psychiatric exam: Present: normal affect, normal mood - Skin Skin exam: Present: warm, dry, intact, normal color. Absent: rash ED Course Vital Signs 07/18/16 07/18/16 07/18/16 12:17 12:30 13:30 Temperature 98.1 F Pulse Rate 77 70 74 Respiratory 16 13 12 Rate Blood Pressure Blood Pressure 181/96 181/96 175/87 [Left] O2 Sat by Pulse 99 97 98 Oximetry 07/18/16 07/18/16 07/18/16 14:00 14:06 14:11 Temperature Pulse Rate 69 73 66 Respiratory 11 L 12 17 Rate Blood Pressure Blood Pressure 182/98 [Left] O2 Sat by Pulse 99 100 100 Oximetry 07/18/16 07/18/16 07/18/16 14:21 14:31 14:41 Temperature Pulse Rate 69 64 73 Respiratory 11 L 16 12 Rate Blood Pressure Blood Pressure [Left] O2 Sat by Pulse 97 94 95 Oximetry 07/18/16 07/18/16 07/18/16 14:51 15:01 15:11 Temperature Pulse Rate 74 71 68 Respiratory 12 12 11 L Rate Blood Pressure Blood Pressure [Left] O2 Sat by Pulse 99 98 97 Oximetry 07/18/16 15:21 Temperature Pulse Rate 68 Respiratory 13 Rate Blood Pressure 182/87 Blood Pressure [Left] O2 Sat by Pulse 98 Oximetry ED Medical Decision Making - Lab Data Result diagrams: 07/18/16 12:30 07/18/16 12:30 - EKG Data When compared to previous EKG there are: no significant change, previous EKG unavailable Interpretation: no acute changes - Medical Decision Making Patient doing well, wishing to go home, talk in detail to her and her granddaughter, consulted Caridology who agree on discharging the patient after a repeat troponin. Rest of the labs negative. Will dc., Critical care attestation.: If time is entered above; I have spent that time in minutes in the direct care of this critically ill patient, excluding procedure time. ED Disposition Clinical Impression: Chest pain HTN (hypertension) Qualifiers: Hypertension type: essential hypertension Qualified Code(s): I10 - Essential ( primary) hypertension Disposition: DISCHARGED TO HOME OR SELFCARE Is pt being admited?: No Does the pt Need Aspirin: No Condition: Good Instructions: Hypertension (ED) Referrals: PRIMARY CARE, [Primary Care Provider] - 3-5 Days Time of Disposition: 17:35
[2016-07-18 20:13] VITALS: BP 168/84
== END 2016-07-18 20:11 | disposition home or self-care (01) ==
LOC: ED 11:53
DX: R07.9 Chest pain, unspecified (principal); I10 Essential (primary) hypertension; Z86.73 Personal history of transient ischemic attack (TIA), and cerebral infarction without residual deficits; E11.9 Type 2 diabetes mellitus without complications; F03.90 Unspecified dementia, unspecified severity, without behavioral disturbance, psychotic disturbance, mood disturbance, and anxiety
CPT/HCPCS: 36415; 80048; 82962; 84484; 85025; 93005; 93010